=== PATIENT | male | born 1960 | race Caucasian/White ===

== ENCOUNTER 2021-10-27 08:05 | Day surgery (SDC) | payer OTHER ==
[~2021-10-27] VITALS: Ht 175.3 cm; Wt 130.9 kg
[~2021-10-27 08:05] MED LIST: BRIMONIDINE TART5 ML OPTH; CLARITIN10 M2 PO; PROZAC20 MG PO; TIMOLOL MALEATE5 M2
--- NOTE | 2021-10-27 10:24 | NUR ---
10/27/21 Linda Almaraz 1018-PATIENT ARRIVED TO PACU ON RA RR EVEN. PATIENT LAYING LEFT LATERAL. ABDOMEN SOFT. PATIENT AROUSES TO VERBAL STIMULI DENIES PAIN OR NAUSEA. ENCOURAGED TO PASS GAS. SLEEP APNEA HANDOUT TO GO HOME WITH PATIENT. PATIENT SLEEPING RR EVEN 94% RA
--- NOTE | 2021-10-28 08:32 | OR ---
[facility] [address], [place] [address] Signed DATE OF OPERATION: 10/27/2021 SURGEON: Fabi Pittman MD PREOPERATIVE DIAGNOSES: 1. Mother with probable colonic polyps. 2. Father with pancreatic cancer. 3. Personal history of colonic polyps in 2015. 4. External hemorrhoid. POSTOPERATIVE DIAGNOSES: 1. 4 mm polyp at 100 cm. 2. 4 mm polyp at 85 cm. 3. 4 mm polyp at 50 cm. 4. 3 mm polyp at 22 cm/sigmoid. 5. 3 mm polyp at 7 cm. 6. Moderate internal and external hemorrhoids. PROCEDURE: Colonoscopy with hot biopsy. ESTIMATED BLOOD LOSS: None. INDICATIONS: Chapin is a 61-year-old gentleman, who presents for a followup colonoscopy. He is about a year late because of the COVID pandemic. He has no lower GI complaints. He said his mother goes through frequent colonoscopies. By default, he thinks she has colonic polyps. His father of pancreatic cancer. Chapin had an external hemorrhoid back in 2014. He also had several hyperplastic polyps and a single adenomatous polyp up around 20 cm. He did well with his Versed and fentanyl. In the office, I gave him a pamphlet on colonoscopy and we had reviewed that together. He understands the nature of the test. There is risk including, but not limited to gas bloating, crampy abdominal pain, bleeding, perforation requiring surgery, and missed diagnosis. He also understands the need for the IV conscious sedation. He had expressed understanding and wished to proceed. PROCEDURE NOTE: Chapin was taken into our endoscopy suite and placed in the left lateral decubitus position. He was given 125 mcg of fentanyl and 5 mg of Versed to cover the case. A Electronically Signed By: FABI PITTMAN MD 10/28/21 0832 PATIENT NAME: CHAPIN SMITH OPERATIVE REPORT DATE OF : 60 REPORT #: [id number] PHYSICIAN: FABI PITTMAN MD PCP: YEE ENRIQUEZ MD REPORT IS CONFIDENTIAL AND NOT TO BE RELEASED WITHOUT AUTHORIZATION [facility] [address], [place] [address] Signed digital rectal exam was performed and he has a fairly pedunculated skin tags/hemorrhoids in the posterior midline. He has good sphincter tone. He is a large man and I really could not palpate his prostate gland. The adult colonoscope was introduced , advanced all around into the cecum under direct visualization of the camera without difficulty. His prep was quite good. We could easily see the appendiceal orifice and ileocecal valve. The scope was then slowly withdrawn. The above-mentioned polyps were easily removed with the help of hot biopsy forceps. Once in the rectum, the scope had been retroflexed, he does have minimal to moderate internal hemorrhoid columns as well. After this, the gas was suctioned out and the colonoscope removed. Chapin tolerated the procedure quite well. RECOMMENDATIONS: I suspect Chapin will be on the 5-year rotation. We will see him back in the office in 1 to 2 weeks. Fabi Pittman MD ALB/MODL /[id number] cc: MD Fabi Arellano MD Copies: YEE ENRIQUEZ MD, ANDREW L MD ~ Electronically Signed By: FABI PITTMAN MD 10/28/21 0832 PATIENT NAME: CHAPIN SMITH OPERATIVE REPORT DATE OF : 60 REPORT #: [id number] PHYSICIAN: FABI PITTMAN MD PCP: YEE ENRIQUEZ MD REPORT IS CONFIDENTIAL AND NOT TO BE RELEASED WITHOUT AUTHORIZATION
--- NOTE | 2021-10-31 17:22 | PATH ---
[facility] [place] [facility] [address] [facility] [place], [place] [address] Signed SPECIMEN(S): A POLYP AT 100 CM SPECIMEN(S): B POLYP AT 85 CM SPECIMEN(S): C POLYP AT 50 CM SPECIMEN(S): D POLYP AT 22 CM SPECIMEN(S): E POLYP AT 7 CM SPECIMEN SOURCE: A. POLYP AT 100 CM B. POLYP AT 85 CM C. POLYP AT 50 CM D. POLYP AT 22 CM E. POLYP AT 7 CM CLINICAL HISTORY: Follow up colonoscopy FINAL PATHOLOGIC DIAGNOSIS: A. Colon, polyp at 100 cm, polypectomy: - Hyperplastic polyp. - Negative for dysplasia or malignancy. B. Colon, polyp at 85 cm, polypectomy: - Hyperplastic polyp. - Negative for dysplasia or malignancy. C. Colon, polyp at 50 cm, polypectomy: - Colonic mucosa with no histopathologic abnormality. - Negative for dysplasia or malignancy. D. Colon, polyp at 22 cm, polypectomy: - Colonic mucosa with no histopathologic abnormality. - Negative for dysplasia or malignancy. E. Colon, polyp at 7 cm, polypectomy: - Hyperplastic polyp. - Negative for dysplasia or malignancy. COMMENT: Regarding specimens C and D: Multiple additional deeper levels were examined. NAL:cml:C2NR MICROSCOPIC EXAMINATION: Histologic sections of all submitted blocks are examined by light microscopy. These findings, together with the gross examination, support the pathologic diagnosis. PATIENT NAME: ONI SMITH PATHOLOGY DATE OF : 60 REPORT #: [id number] PHYSICIAN: KATY CAPONE PCP: YEE ENRIQUEZ MD REPORT IS CONFIDENTIAL AND NOT TO BE RELEASED WITHOUT AUTHORIZATION [facility] [place] [facility] [address] [place], [place] [address] Signed GROSS DESCRIPTION: Five specimens are received in five containers labeled with "TW". A. The specimen, labeled "TW, polyp at 100 cm," is received in formalin and consists of three fragments of pink-hernandez tissue (0.3 cm in greatest dimension). The specimen is submitted entirely in cassette A1. B. The specimen, labeled "TW, polyp at 85," is received in formalin and consists of two fragments of pink-hernandez tissue (0.3 cm in greatest dimension). The specimen is submitted entirely in cassette B1. C. The specimen, labeled "TW, polyp at 50," is received in formalin and consists of one fragment pink-hernandez tissue (0.3 cm in greatest dimension). The specimen is submitted entirely in cassette C1. D. The specimen, labeled "TW, polyp at 22," is received in formalin and consists of one fragment of pink-hernandez tissue (0.2 cm in greatest dimension). The specimen is submitted entirely in cassette D1. E. The specimen, labeled "TW, polyp at 7," is received in formalin and consists of one fragment of pink-hernandez tissue (0.2 cm in greatest dimension). The specimen is submitted entirely in cassette E1. AC (under the direct supervision of a pathologist) The Gross Description was prepared using a voice recognition system. The report was reviewed for accuracy; however, sound-alike word errors, addition and/or deletions may occur. If there is any question about this report, please contact Client Services. PERFORMING LABORATORY: The technical component was performed by [employer] [address] [place] [id number] (Mental Measurements Teacher: Danni Flood MD; CLIA# [id number]). Professional interpretation was performed by [employer] [facility], [address] [address] (CLIA# [id number]). Diagnostician: Yessica Cerda MD Pathologist Electronically Signed 10/31/2021 Copies: ~ PATIENT NAME: ONI SMITH PATHOLOGY DATE OF : 60 REPORT #: [id number] PHYSICIAN: KATY PATHOLOGY PCP: YEE ENRIQUEZ MD REPORT IS CONFIDENTIAL AND NOT TO BE RELEASED WITHOUT AUTHORIZATION
== END 2021-10-27 10:55 | disposition home or self-care (01) ==
LOC: DS 08:05 → OPS 08:05
PROVIDERS: ATTEND Colon & Rectal Surgery
PROC: 0DBE8ZX Excision of Large Intestine, Via Natural or Artificial Opening Endoscopic, Diagnostic (ICD-10-PCS; principal; 2021-10-27 09:30)
DX: K63.5 Polyp of colon (principal); K64.8 Other hemorrhoids; K64.4 Residual hemorrhoidal skin tags
CPT/HCPCS: 99153; G0500; J2250; J3010; J7121

== ENCOUNTER 2025-07-03 06:20 | Day surgery (SDC) | payer OTHER ==
[~2025-07-03] VITALS: Ht 175.3 cm; Wt 132.0 kg
[~2025-07-03 06:20] MED LIST changes: +CEPHALEXIN500 M1 PO; +LACTATED RINGER'S 1,000 ML IV SCH; +LISINOPRIL-HCT1 EACH PO; +METFORMIN HCL500 MG PO; +OZEMPIC0.25 MG/02 SUB-Q; +ROSUVASTATIN CA10 MG PO
[2025-07-03] MEDS ORDERED: KETOROLAC TROMETHAMINE 30 MG/ML VIAL ONE ×2 (06:35→07:43)
[2025-07-03 06:42] VITALS: BP 142/57
[2025-07-03] MEDS ORDERED: IBLOOD GLUCOSE TEST STRIP 1 EA TEST VI PRN ×2 (07:00→08:30)
[2025-07-03] MEDS ORDERED: LIDOCAINE HCL 1% 5 ML SDV INJ ONE (07:00)
[2025-07-03] MEDS ORDERED: CEFAZOLIN SODIUM 3 GM in SODIUM CHLORIDE 0.9% 100 ML IV SCH (07:00)
[2025-07-03] MEDS ORDERED: HYDROCODONE/ACETA 5/325 TAB PO PRN (07:30)
[2025-07-03] MEDS ORDERED: ACETAMINOPHEN 1,000 MG/100 ML VIAL ONE (07:43)
[2025-07-03] MEDS ORDERED: fentaNYL citrate 100 MCG/2 ML VIAL ONE (07:43)
[2025-07-03] MEDS ORDERED: LIDOCAINE HCL 2% 5 ML SDV ONE (07:43)
[2025-07-03] MEDS ORDERED: DICLOFENAC SODI75 MG PO (08:20)
[2025-07-03] MEDS ORDERED: HYDROCODON-ACE1 EA10 PO (08:20)
[2025-07-03] MEDS ORDERED: NALOXONE HCL 0.4 MG SYR IV PRN (08:30)
[2025-07-03] MEDS ORDERED: fentaNYL citrate 50 MCG/ML SDV IV PRN (08:30)
--- NOTE | 2025-07-03 08:34 | NUR ---
07/03/25 0834 Yanira Romero 0819 PT TO PACU COUGHTING O2 VIA MASK. PT MOVING TRYING TO COVER HIS COUGH. PT FELL BACK TO SLEEP.
[2025-07-03 08:53] VITALS: BP 140/55
[2025-07-03] MEDS ORDERED: DICLOFENAC SOD 75 MG TABEC PO SCH (09:00)
--- NOTE | 2025-07-03 09:33 | NUR ---
BART 0850-PT BACK TO ROOM FROM PACU ON RA. RECEIVED REPORT FROM PB CLARK. PT IS AWAKE. RESP EVEN AND UNLABORED. STATES L KNEE IS SORE. PIETER NAUSEA. ICE PACK IN PLACE. PROVIDED PT WITH WATER AND CRACKERS. NO OTHER NEEDS AT THIS TIME. CALL LIGHT WITHIN REACH.
--- NOTE | 2025-07-03 09:53 | NUR ---
0946-PT LAYING IN BED AWAKE. RESP EVEN AND UNLABORED. RATES PAIN 3/10, DENIES NAUSEA. ICE PACK IN PLACE. PT READY TO GO HOME. PT WILL GET DRESSED. CALL LIGHT WITHIN REACH. 0955-PT AMBULATES TO RESTROOM. GAIT STEADY AND TOLERATED WELL. 0957-PT BACK TO ROOM. SITTING ON BED. WILL DISCHARGE SOON.
--- NOTE | 2025-07-03 10:38 | NUR ---
LE 1010-WENT OVER DISCHARGE INSTRUCTIONS WITH PT. WENT OVER POSTOP MEDICATIONS. ALL QUESTIONS ANSWERED. PT IS NOW JUST WAITING FOR A RIDE. LE 1019-PT AMBULATES TO WHEELCHAIR AND RIDE PROVIDED TO FRONT OF HOSPITAL WHERE FAMILY WAS WAITING WITH THE CAR.
[2025-07-03] MEDS ORDERED: SEVOFLURANE 250 ML BTL INH ONE (14:38)
--- NOTE | 2025-07-06 08:35 | OR ---
[facility] [address] [place], [place] [address] Signed DATE OF OPERATION: 07/03/2025 SURGEON: Leatha Romero MD PREOPERATIVE DIAGNOSIS: Medial meniscus tear, left knee. POSTOPERATIVE DIAGNOSIS: Medial meniscus tear, left knee. PROCEDURE PERFORMED: Left knee arthroscopy with partial medial meniscectomy. AERODYNAMICS ENGINEER: None. ANESTHESIA: General. BLOOD LOSS: Minimal. BRIEF HISTORY: Chapin is a 64-year-old gentleman with pain and instability in his knee. He had undergone nonoperative treatment without substantial relief. Risks, benefits, and alternatives of surgery were discussed, and he understood and wished to proceed. DESCRIPTION OF PROCEDURE: Once consent was obtained, he was taken to the operating room, placed on the OR table. The right leg was flexed, abducted, and externally rotated on a well-padded leg ken. The left knee was placed in well-padded leg ken and prepped and draped in a standard sterile fashion. The standard inferolateral and superolateral portals were made and the scope was introduced in the knee. 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 Medial and lateral gutters showed synovitis, but no loose bodies. ACL was intact. Lateral compartment was intact. Medial compartment showed diffuse grade 3 to one small area of grade 4 chondromalacia. There was a complex tear of the posterior medial meniscus. Electronically Signed By: LEATHA ROMERO MD 07/06/25 0835 PATIENT NAME: CHAPIN SMITH OPERATIVE REPORT DATE OF : 60 REPORT #: [id number] PHYSICIAN: LEATHA ROMERO MD PCP: YEE ENRIQUEZ MD REPORT IS CONFIDENTIAL AND NOT TO BE RELEASED WITHOUT AUTHORIZATION [address] [place], [place] [address] Signed DESCRIPTION OF OPERATION: Standard inferomedial portal was made after localization using a spinal needle. The straight and curved biters were then used to trim the meniscus back to a stable rim. This was then smoothed and feathered with a shaver and the debris was evacuated. The scope was withdrawn and portals were closed with 3-0 nylon. The knee was injected with 60 mg of Toradol. The wounds were dressed with Adaptic, ABD, and Sharif wrap. He tolerated the procedure well. All sponge, needle, and instrument counts were correct. Leatha Romero MD BA/MODL /[id number] Copies: ~ Electronically Signed By: LEATHA ROMERO MD 07/06/25 0835 PATIENT NAME: SARAHCHAPIN OPERATIVE REPORT DATE OF : 60 REPORT #: [id number] PHYSICIAN: LEATHA ROMERO MD PCP: YEE ENRIQUEZ MD REPORT IS CONFIDENTIAL AND NOT TO BE RELEASED WITHOUT AUTHORIZATION
== END 2025-07-03 10:10 | disposition home or self-care (01) ==
LOC: DS 06:20
PROVIDERS: ATTEND Specialist
PROC: 0SBD4ZZ Excision of Left Knee Joint, Percutaneous Endoscopic Approach (ICD-10-PCS; principal; 2025-07-03 07:50)
DX: S83.232A Complex tear of medial meniscus, current injury, left knee, initial encounter (principal); M22.42 Chondromalacia patellae, left knee; X58.XXXA Exposure to other specified factors, initial encounter; E11.9 Type 2 diabetes mellitus without complications
CPT/HCPCS: 01400; J0131; J0688; J1885; J2003; J2405; J2704; J3010; J7121